=== PATIENT | female | born 1950 | race African-American/Black ===

== ENCOUNTER 2017-08-11 15:17 | Inpatient (IN) | payer BC, MEDICARE ==
[2017-08-11] MEDS: IV NORMAL SALINE 1000ML BAG 1,500 ML IV ×3 (15:46→19:45)
[2017-08-11] MEDS: ONDANSETRON PF 4 MG/2 ML VIAL. IV (15:52)
[2017-08-11] MEDS: fentaNYL PF VIAL 100 MCG/2 ML VIAL IV (15:52)
[2017-08-11 16:19] LABS: BILIRUBIN,URINE NEGATIVE (NEG); CLARITY,URINE TURBID; COLOR,URINE YELLOW; GLUCOSE,URINE 250 mg/dL (NEG); NITRITE,URINE NEGATIVE (NEG); PH,URINE 6.5; PROTEIN,URINE >=300 mg/dL (NEG-TRACE); UROBILINOGEN,URINE 0.2 mg/dL (0.2 mg/dL)
[2017-08-11 16:27] LABS: BACTERIA,URINE FEW /HPF (0-FEW); RBC,URINE OCC /HPF (0-2); SQUAMOUS EPITHELIAL CELL,UR FEW /LPF; WBC,URINE TNTC /HPF (0-4)
[2017-08-11 16:50] LABS: INFLUENZA A PATIENT NEGATIVE (NEGATIVE); INFLUENZA B PATIENT NEGATIVE (NEGATIVE); OBC FLU VALID
[2017-08-11] MEDS ORDERED: fentaNYL PF VIAL 100 MCG/2 ML VIAL IV (17:00)
[2017-08-11] MEDS ORDERED: ONDANSETRON PF 4 MG/2 ML VIAL. IV (17:00)
[2017-08-11] MEDS ORDERED: levOFLOXacin PER PHARMACY. MC (17:00)
[2017-08-11] MEDS ORDERED: ACETAMINOPHEN 325 MG TABLET. PO (17:00)
[2017-08-11 17:11] LABS: ANION GAP 13 (6-14); BLOOD UREA NITROGEN 35 mg/dL (7-20); BUN/CREATININE RATIO 16 (6-20); CALCIUM 9.1 mg/dL (8.5-10.1); CARBON DIOXIDE 22 mmol/L (21-32); CHLORIDE 99 mmol/L (98-107); CREATININE 2.2 mg/dL (0.6-1.0); GFR 26.9; GLUCOSE 313 mg/dL (70-99); POTASSIUM 4.4 mmol/L (3.5-5.1); SODIUM 134 mmol/L (136-145)
[2017-08-11 17:18] LABS: ALBUMIN 2.5 g/dL (3.4-5.0); ALBUMIN/GLOBULIN RATIO 0.5 (1.0-1.7); ALK PHOS 131 U/L (46-116); ALT (SGPT) 16 U/L (14-59); AST (SGOT) 15 U/L (15-37); LIPASE 56 U/L (73-393); TOTAL BILIRUBIN 0.3 mg/dL (0.2-1.0); TOTAL PROTEIN 7.3 g/dL (6.4-8.2)
[2017-08-11 17:21] LABS: LACTIC ACID 2.3 mmol/L (0.4-2.0)
[2017-08-11 18:15] LABS: ADD MAN DIFF? NO; BASO # 0.1 x10^3/uL (0.0-0.2); BASO % 1 % (0-3); EOS % 0 % (0-3); HEMOGLOBIN 11.3 g/dL (12.0-15.5); LYMPH # 1.3 x10^3/uL (1.0-4.8); LYMPH % 11 % (24-48); MEAN CORPUSCULAR HEMOGLOBIN 27 pg (25-35); MEAN CORPUSCULAR HGB CONC 33 g/dL (31-37); MEAN CORPUSCULAR VOLUME 81 fL (79-100); MONO # 0.6 x10^3/uL (0.0-1.1); MONO % 5 % (0-9); NEUT # 9.8 x10^3uL (1.8-7.7); NEUT % 83 % (31-73); PLATELET COUNT 474 x10^3/uL (140-400); RED BLOOD COUNT 4.19 x10^6/uL (3.50-5.40); RED CELL DISTRIBUTION WIDTH 14.5 % (11.5-14.5); WHITE BLOOD COUNT 11.8 x10^3/uL (4.0-11.0)
[2017-08-11 20:08] LABS: LACTIC ACID 2.8 mmol/L (0.4-2.0)
[2017-08-11] MEDS ORDERED: DICYCLOMINE HCL 10 MG CAPSULE PO (20:45)
[2017-08-11] MEDS ORDERED: NON FORMULARY ITEM (Budesonide/Formoterol Fumarate (Symbicort 160-4.5 Mcg Inhaler) 2 PUFF) IH (21:00)
[2017-08-11] MEDS ORDERED: NON FORMULARY ITEM (Ranitidine Hcl 1 CAP) PO (21:00)
[2017-08-11] MEDS ORDERED: NON FORMULARY ITEM (Ipratropium/Albuterol Sulfate (Combivent Respimat Inhal) 2 INH) IH (21:00)
[2017-08-11] MEDS: INSULIN ASPART 300 UNITS/3 ML INSULN.PEN SQ (21:00)
[2017-08-11 21:23] LABS: POC GLUCOSE 237 mg/dL (70-99)
[2017-08-11] MEDS ORDERED: HYDROcodone/APAP 5/325MG 1 TAB TABLET PO (21:30)
[2017-08-11] MEDS ORDERED: ONDANSETRON ODT 4 MG TAB.RAPDIS. PO (21:30)
[2017-08-11] MEDS: IV NORMAL SALINE 1000ML BAG 1,000 ML IV (22:16)
[2017-08-11] MEDS: LATANOPROST 0.005% OPHTH SOLUTION 2.5ML BOTTLE. OU (22:28)
[2017-08-11] MEDS: traMADol 50 MG TABLET PO (22:28)
[2017-08-11] MEDS: GABAPENTIN 300 MG CAPSULE. PO (22:28)
[2017-08-11] MEDS: INSULIN DETEMIR 300 UNITS/3 ML INSULN.PEN. SQ (22:37)
[2017-08-12 00:33] LABS: POC GLUCOSE 210 mg/dL (70-99)
[2017-08-12 05:59] LABS: ADD MAN DIFF? NO
[2017-08-12] MEDS: IV NORMAL SALINE 1000ML BAG 1,000 ML IV ×2 (06:02→12:57)
[2017-08-12 06:04] LABS: BASO # 0.1 x10^3/uL (0.0-0.2); BASO % 1 % (0-3); EOS # 0.2 x10^3/uL (0.0-0.7); EOS % 1 % (0-3); HEMOGLOBIN 9.8 g/dL (12.0-15.5); LYMPH # 2.1 x10^3/uL (1.0-4.8); LYMPH % 19 % (24-48); MEAN CORPUSCULAR HEMOGLOBIN 27 pg (25-35); MEAN CORPUSCULAR HGB CONC 34 g/dL (31-37); MEAN CORPUSCULAR VOLUME 81 fL (79-100); MONO # 0.8 x10^3/uL (0.0-1.1); MONO % 8 % (0-9); NEUT # 7.6 x10^3uL (1.8-7.7); NEUT % 71 % (31-73); PLATELET COUNT 386 x10^3/uL (140-400); RED BLOOD COUNT 3.58 x10^6/uL (3.50-5.40); RED CELL DISTRIBUTION WIDTH 14.8 % (11.5-14.5); WHITE BLOOD COUNT 10.7 x10^3/uL (4.0-11.0)
[2017-08-12 06:13] LABS: ANION GAP 10 (6-14); BLOOD UREA NITROGEN 31 mg/dL (7-20); CALCIUM 8.8 mg/dL (8.5-10.1); CARBON DIOXIDE 23 mmol/L (21-32); CHLORIDE 103 mmol/L (98-107); CREATININE 1.9 mg/dL (0.6-1.0); GFR 31.8; GLUCOSE 176 mg/dL (70-99); POTASSIUM 4.2 mmol/L (3.5-5.1); SODIUM 136 mmol/L (136-145)
[2017-08-12] MEDS: IPRATRPIUM/ALBUTEROL 0.5/2.5MG 3 ML NEBU. NEB ×4 (08:00→19:36)
[2017-08-12] MEDS: PANTOPRAZOLE 40 MG TABLET.DR. PO (08:14)
[2017-08-12 08:40] LABS: POC GLUCOSE 150 mg/dL (70-99)
[2017-08-12] MEDS: AZELASTINE NASAL SPRAY 30ML BOTTLE. NS ×2 (09:00→21:54)
[2017-08-12] MEDS: EZETIMIBE 10 MG TABLET. PO (10:05)
[2017-08-12] MEDS: LOSARTAN POTASSIUM 50 MG TABLET. PO (10:06)
[2017-08-12] MEDS: ASPIRIN CHEWABLE 81 MG TABLET. PO (10:06)
[2017-08-12] MEDS: CHOLECALCIFEROL (VITAMIN D3) 1,000 UNIT TABLET PO (10:07)
[2017-08-12] MEDS: CITALOPRAM 20 MG TABLET. PO (10:07)
[2017-08-12] MEDS: traMADol 50 MG TABLET PO ×2 (10:07→21:54)
[2017-08-12] MEDS: RIVAROXABAN 15 MG TABLET. PO (10:07)
[2017-08-12] MEDS: hydroCHLOROthiazide 25 MG TABLET PO (10:07)
[2017-08-12] MEDS: NITROGLYCERIN 0.2MG/HR PATCH. TD (10:08)
[2017-08-12] MEDS: FLUTICASONE 50MCG/NASAL SPRAY 16GM BOTTLE. NS (10:18)
[2017-08-12] MEDS: INSULIN ASPART 300 UNITS/3 ML INSULN.PEN SQ ×5 (11:30→21:00)
[2017-08-12] MEDS: BUDESONIDE 0.5 MG/2 ML NEBU. NEB ×2 (11:50→19:36)
[2017-08-12 12:02] LABS: POC GLUCOSE 257 mg/dL (70-99)
[2017-08-12 17:15] LABS: POC GLUCOSE 242 mg/dL (70-99)
[2017-08-12 21:33] LABS: POC GLUCOSE 204 mg/dL (70-99)
[2017-08-12] MEDS: LATANOPROST 0.005% OPHTH SOLUTION 2.5ML BOTTLE. OU (21:54)
[2017-08-12] MEDS: GABAPENTIN 300 MG CAPSULE. PO (21:54)
[2017-08-12] MEDS: INSULIN DETEMIR 300 UNITS/3 ML INSULN.PEN. SQ (22:00)
[2017-08-13 03:33] LABS: ADD MAN DIFF? NO
[2017-08-13 03:37] LABS: BASO # 0.1 x10^3/uL (0.0-0.2); BASO % 1 % (0-3); EOS # 0.2 x10^3/uL (0.0-0.7); EOS % 2 % (0-3); HEMATOCRIT 29.3 % (36.0-47.0); HEMOGLOBIN 9.9 g/dL (12.0-15.5); LYMPH # 1.8 x10^3/uL (1.0-4.8); LYMPH % 18 % (24-48); MEAN CORPUSCULAR HEMOGLOBIN 28 pg (25-35); MEAN CORPUSCULAR HGB CONC 34 g/dL (31-37); MEAN CORPUSCULAR VOLUME 83 fL (79-100); MONO # 0.9 x10^3/uL (0.0-1.1); MONO % 8 % (0-9); NEUT # 7.4 x10^3uL (1.8-7.7); NEUT % 72 % (31-73); PLATELET COUNT 372 x10^3/uL (140-400); RED BLOOD COUNT 3.55 x10^6/uL (3.50-5.40); RED CELL DISTRIBUTION WIDTH 15.1 % (11.5-14.5); WHITE BLOOD COUNT 10.3 x10^3/uL (4.0-11.0)
[2017-08-13 03:57] LABS: ALBUMIN 2.3 g/dL (3.4-5.0); ALBUMIN/GLOBULIN RATIO 0.5 (1.0-1.7); ALK PHOS 120 U/L (46-116); ALT (SGPT) 14 U/L (14-59); ANION GAP 10 (6-14); AST (SGOT) 15 U/L (15-37); BLOOD UREA NITROGEN 33 mg/dL (7-20); BUN/CREATININE RATIO 15 (6-20); CALCIUM 8.9 mg/dL (8.5-10.1); CARBON DIOXIDE 23 mmol/L (21-32); CHLORIDE 104 mmol/L (98-107); CREATININE 2.2 mg/dL (0.6-1.0); GFR 26.9; GLUCOSE 221 mg/dL (70-99); POTASSIUM 4.5 mmol/L (3.5-5.1); SODIUM 137 mmol/L (136-145); TOTAL BILIRUBIN 0.2 mg/dL (0.2-1.0); TOTAL PROTEIN 6.5 g/dL (6.4-8.2)
[2017-08-13 07:30] LABS: POC GLUCOSE 184 mg/dL (70-99)
[2017-08-13] MEDS: INSULIN ASPART 300 UNITS/3 ML INSULN.PEN SQ ×7 (07:30→20:31)
[2017-08-13] MEDS: IPRATRPIUM/ALBUTEROL 0.5/2.5MG 3 ML NEBU. NEB ×4 (07:32→20:11)
[2017-08-13] MEDS: BUDESONIDE 0.5 MG/2 ML NEBU. NEB ×2 (07:32→20:11)
[2017-08-13] MEDS: ASPIRIN CHEWABLE 81 MG TABLET. PO (08:33)
[2017-08-13] MEDS: PANTOPRAZOLE 40 MG TABLET.DR. PO (08:33)
[2017-08-13] MEDS: LOSARTAN POTASSIUM 50 MG TABLET. PO (08:33)
[2017-08-13] MEDS: CHOLECALCIFEROL (VITAMIN D3) 1,000 UNIT TABLET PO (08:34)
[2017-08-13] MEDS: traMADol 50 MG TABLET PO ×2 (08:34→20:29)
[2017-08-13] MEDS: NITROGLYCERIN 0.2MG/HR PATCH. TD (08:34)
[2017-08-13] MEDS: hydroCHLOROthiazide 25 MG TABLET PO (08:34)
[2017-08-13] MEDS: EZETIMIBE 10 MG TABLET. PO (08:34)
[2017-08-13] MEDS: FLUTICASONE 50MCG/NASAL SPRAY 16GM BOTTLE. NS (08:35)
[2017-08-13] MEDS: CITALOPRAM 20 MG TABLET. PO (08:38)
[2017-08-13] MEDS: AZELASTINE NASAL SPRAY 30ML BOTTLE. NS ×2 (08:38→20:30)
[2017-08-13 10:57] LABS: POC GLUCOSE 234 mg/dL (70-99)
[2017-08-13] MEDS: IV NORMAL SALINE 1000ML BAG 1,000 ML IV (13:53)
[2017-08-13 16:23] LABS: POC GLUCOSE 208 mg/dL (70-99)
[2017-08-13] MEDS: RIVAROXABAN 10 MG TABLET. PO (17:15)
[2017-08-13] MEDS: GABAPENTIN 300 MG CAPSULE. PO (20:29)
[2017-08-13] MEDS: LATANOPROST 0.005% OPHTH SOLUTION 2.5ML BOTTLE. OU (20:30)
[2017-08-13] MEDS: INSULIN DETEMIR 300 UNITS/3 ML INSULN.PEN. SQ (20:36)
[2017-08-13 20:42] LABS: POC GLUCOSE 123 mg/dL (70-99)
[2017-08-14] MEDS: IV NORMAL SALINE 1000ML BAG 1,000 ML IV ×2 (04:04→17:37)
[2017-08-14 06:19] LABS: HEMATOCRIT 27.6 % (36.0-47.0); HEMOGLOBIN 9.2 g/dL (12.0-15.5); MEAN CORPUSCULAR HEMOGLOBIN 27 pg (25-35); MEAN CORPUSCULAR HGB CONC 33 g/dL (31-37); MEAN CORPUSCULAR VOLUME 82 fL (79-100); PLATELET COUNT 343 x10^3/uL (140-400); RED BLOOD COUNT 3.37 x10^6/uL (3.50-5.40); RED CELL DISTRIBUTION WIDTH 15.4 % (11.5-14.5); WHITE BLOOD COUNT 11.1 x10^3/uL (4.0-11.0)
[2017-08-14] MEDS: PANTOPRAZOLE 40 MG TABLET.DR. PO (06:48)
[2017-08-14 06:49] LABS: ANION GAP 9 (6-14); BLOOD UREA NITROGEN 38 mg/dL (7-20); CALCIUM 8.4 mg/dL (8.5-10.1); CARBON DIOXIDE 23 mmol/L (21-32); CHLORIDE 104 mmol/L (98-107); CREATININE 2.6 mg/dL (0.6-1.0); GFR 22.1; GLUCOSE 192 mg/dL (70-99); SODIUM 136 mmol/L (136-145)
[2017-08-14] MEDS: INSULIN ASPART 300 UNITS/3 ML INSULN.PEN SQ ×7 (07:30→21:00)
[2017-08-14] MEDS: IPRATRPIUM/ALBUTEROL 0.5/2.5MG 3 ML NEBU. NEB ×4 (07:56→20:28)
[2017-08-14] MEDS: BUDESONIDE 0.5 MG/2 ML NEBU. NEB ×2 (07:56→20:27)
[2017-08-14] MEDS: ASPIRIN CHEWABLE 81 MG TABLET. PO (08:20)
[2017-08-14] MEDS: CHOLECALCIFEROL (VITAMIN D3) 1,000 UNIT TABLET PO (08:21)
[2017-08-14] MEDS: CITALOPRAM 20 MG TABLET. PO (08:21)
[2017-08-14] MEDS: EZETIMIBE 10 MG TABLET. PO (08:21)
[2017-08-14] MEDS: traMADol 50 MG TABLET PO ×2 (08:25→21:10)
[2017-08-14] MEDS: hydroCHLOROthiazide 25 MG TABLET PO (08:26)
[2017-08-14] MEDS: NITROGLYCERIN 0.2MG/HR PATCH. TD (08:28)
[2017-08-14] MEDS: AZELASTINE NASAL SPRAY 30ML BOTTLE. NS ×2 (08:29→21:11)
[2017-08-14] MEDS: FLUTICASONE 50MCG/NASAL SPRAY 16GM BOTTLE. NS (08:29)
[2017-08-14] MEDS: LOSARTAN POTASSIUM 50 MG TABLET. PO (09:00)
[2017-08-14 11:37] LABS: POC GLUCOSE 219 mg/dL (70-99)
[2017-08-14] MEDS: FLUCONAZOLE 100 MG TABLET. PO (12:34)
[2017-08-14] MEDS: ANTI-COAG MONITOR BY PHARMACY. MC (13:01)
[2017-08-14] MEDS ORDERED: DEXTROSE 50% 25 GM / 50ML DISP.SYRIN. IV (17:27)
[2017-08-14] MEDS: DEXTROSE 50% 25 GM / 50ML DISP.SYRIN. IV (17:39)
[2017-08-14 17:44] LABS: POC GLUCOSE 68 mg/dL (70-99)
[2017-08-14 20:47] LABS: POC GLUCOSE 119 mg/dL (70-99)
[2017-08-14] MEDS: GABAPENTIN 300 MG CAPSULE. PO (21:10)
[2017-08-14] MEDS: LATANOPROST 0.005% OPHTH SOLUTION 2.5ML BOTTLE. OU (21:10)
[2017-08-14] MEDS: LACTOBACILLUS RHAMNOSUS GG 1 CAPSULE. PO (21:10)
[2017-08-14] MEDS: INSULIN DETEMIR 300 UNITS/3 ML INSULN.PEN. SQ (21:17)
[2017-08-15] MEDS: IV NORMAL SALINE 1000ML BAG 1,000 ML IV ×3 (00:56→20:24)
[2017-08-15 07:17] LABS: HEMATOCRIT 27.6 % (36.0-47.0); HEMOGLOBIN 9.2 g/dL (12.0-15.5); MEAN CORPUSCULAR HEMOGLOBIN 28 pg (25-35); MEAN CORPUSCULAR HGB CONC 34 g/dL (31-37); MEAN CORPUSCULAR VOLUME 83 fL (79-100); PLATELET COUNT 331 x10^3/uL (140-400); RED BLOOD COUNT 3.33 x10^6/uL (3.50-5.40); RED CELL DISTRIBUTION WIDTH 15.6 % (11.5-14.5); WHITE BLOOD COUNT 9.2 x10^3/uL (4.0-11.0)
[2017-08-15 07:39] LABS: ANION GAP 8 (6-14); BLOOD UREA NITROGEN 36 mg/dL (7-20); CALCIUM 8.9 mg/dL (8.5-10.1); CARBON DIOXIDE 22 mmol/L (21-32); CHLORIDE 105 mmol/L (98-107); CREATININE 2.4 mg/dL (0.6-1.0); GFR 24.3; GLUCOSE 246 mg/dL (70-99); POTASSIUM 4.6 mmol/L (3.5-5.1); SODIUM 135 mmol/L (136-145)
[2017-08-15] MEDS: IPRATRPIUM/ALBUTEROL 0.5/2.5MG 3 ML NEBU. NEB ×4 (08:09→20:08)
[2017-08-15] MEDS: BUDESONIDE 0.5 MG/2 ML NEBU. NEB ×2 (08:09→20:08)
[2017-08-15 08:16] LABS: POC GLUCOSE 235 mg/dL (70-99)
[2017-08-15] MEDS: PANTOPRAZOLE 40 MG TABLET.DR. PO (09:46)
[2017-08-15] MEDS: LACTOBACILLUS RHAMNOSUS GG 1 CAPSULE. PO ×2 (09:46→20:22)
[2017-08-15] MEDS: EZETIMIBE 10 MG TABLET. PO (09:46)
[2017-08-15] MEDS: traMADol 50 MG TABLET PO ×2 (09:46→20:22)
[2017-08-15] MEDS: ASPIRIN CHEWABLE 81 MG TABLET. PO (09:47)
[2017-08-15] MEDS: CITALOPRAM 20 MG TABLET. PO (09:47)
[2017-08-15] MEDS: CHOLECALCIFEROL (VITAMIN D3) 1,000 UNIT TABLET PO (09:47)
[2017-08-15] MEDS: AZELASTINE NASAL SPRAY 30ML BOTTLE. NS ×2 (09:48→20:23)
[2017-08-15] MEDS: FLUTICASONE 50MCG/NASAL SPRAY 16GM BOTTLE. NS (09:48)
[2017-08-15] MEDS: NITROGLYCERIN 0.2MG/HR PATCH. TD (09:48)
[2017-08-15] MEDS: INSULIN ASPART 300 UNITS/3 ML INSULN.PEN SQ ×7 (09:53→20:23)
[2017-08-15] MEDS: FLUCONAZOLE 100 MG TABLET. PO (09:56)
[2017-08-15 11:41] LABS: POC GLUCOSE 259 mg/dL (70-99)
[2017-08-15] MEDS: HYDROcodone/APAP 5/325MG 1 TAB TABLET PO (11:46)
[2017-08-15] MEDS: PHENAZOPYRIDINE 200 MG TABLET. PO (11:46)
[2017-08-15] MEDS: hydroCHLOROthiazide 25 MG TABLET PO (11:48)
[2017-08-15] MEDS: LOSARTAN POTASSIUM 50 MG TABLET. PO (11:48)
[2017-08-15 13:26] LABS: RETIC COUNT 0.8 % (0.5-2.5)
[2017-08-15 13:32] LABS: % SAT IRON 9 % (15-34); IRON,SERUM 21 ug/dL (50-170)
[2017-08-15 13:47] LABS: FERRITIN 109 ng/mL (8-252)
[2017-08-15 17:12] LABS: POC GLUCOSE 70 mg/dL (70-99)
[2017-08-15] MEDS: DEXTROSE 50% 25 GM / 50ML DISP.SYRIN. IV (17:30)
[2017-08-15 18:48] LABS: POC GLUCOSE 91 mg/dL (70-99)
[2017-08-15] MEDS: GABAPENTIN 300 MG CAPSULE. PO (20:22)
[2017-08-15] MEDS: LATANOPROST 0.005% OPHTH SOLUTION 2.5ML BOTTLE. OU (20:24)
[2017-08-15] MEDS: INSULIN DETEMIR 300 UNITS/3 ML INSULN.PEN. SQ (20:31)
[2017-08-15 20:49] LABS: POC GLUCOSE 101 mg/dL (70-99)
[2017-08-16 02:15] LABS: TOTAL PROTEIN CREATININE RATIO 2714 mg/g creat (0-200); UR CREATININE RD 72.4 mg/dL (Not Estab.); UR PROTEIN RD 196.5 mg/dL (Not Estab.)
[2017-08-16] MEDS: IV NORMAL SALINE 1000ML BAG 1,000 ML IV (06:23)
[2017-08-16] MEDS: INSULIN ASPART 300 UNITS/3 ML INSULN.PEN SQ ×7 (07:30→21:00)
[2017-08-16] MEDS: BUDESONIDE 0.5 MG/2 ML NEBU. NEB ×2 (07:38→19:35)
[2017-08-16] MEDS: IPRATRPIUM/ALBUTEROL 0.5/2.5MG 3 ML NEBU. NEB ×4 (07:38→19:34)
[2017-08-16 07:59] LABS: POC GLUCOSE 172 mg/dL (70-99)
[2017-08-16 08:28] LABS: ANION GAP 10 (6-14); BLOOD UREA NITROGEN 32 mg/dL (7-20); CARBON DIOXIDE 20 mmol/L (21-32); CHLORIDE 106 mmol/L (98-107); CREATININE 2.2 mg/dL (0.6-1.0); GFR 26.9; GLUCOSE 179 mg/dL (70-99); POTASSIUM 4.5 mmol/L (3.5-5.1); SODIUM 136 mmol/L (136-145)
[2017-08-16] MEDS: EZETIMIBE 10 MG TABLET. PO (08:39)
[2017-08-16] MEDS: LOSARTAN POTASSIUM 50 MG TABLET. PO (08:39)
[2017-08-16] MEDS: traMADol 50 MG TABLET PO ×2 (08:40→22:26)
[2017-08-16] MEDS: CITALOPRAM 20 MG TABLET. PO (08:40)
[2017-08-16] MEDS: NITROGLYCERIN 0.2MG/HR PATCH. TD (08:40)
[2017-08-16] MEDS: PANTOPRAZOLE 40 MG TABLET.DR. PO (08:40)
[2017-08-16] MEDS: FLUCONAZOLE 100 MG TABLET. PO (08:40)
[2017-08-16] MEDS: CHOLECALCIFEROL (VITAMIN D3) 1,000 UNIT TABLET PO (08:40)
[2017-08-16] MEDS: ASPIRIN CHEWABLE 81 MG TABLET. PO (08:40)
[2017-08-16] MEDS: hydroCHLOROthiazide 25 MG TABLET PO (08:40)
[2017-08-16] MEDS: LACTOBACILLUS RHAMNOSUS GG 1 CAPSULE. PO ×2 (08:40→22:25)
[2017-08-16] MEDS: FLUTICASONE 50MCG/NASAL SPRAY 16GM BOTTLE. NS (08:41)
[2017-08-16] MEDS: AZELASTINE NASAL SPRAY 30ML BOTTLE. NS ×2 (08:41→22:28)
[2017-08-16] MEDS: ANTI-COAG MONITOR BY PHARMACY. MC (11:18)
[2017-08-16 11:38] LABS: POC GLUCOSE 256 mg/dL (70-99)
[2017-08-16] MEDS: PHENAZOPYRIDINE 200 MG TABLET. PO ×3 (12:09→22:26)
[2017-08-16] MEDS: IRON SUCROSE COMPLEX 200 MG in TOTAL VOLUME SYRINGE 0 ML IV (12:09)
[2017-08-16 16:28] LABS: POC GLUCOSE 73 mg/dL (70-99)
[2017-08-16] MEDS: RIVAROXABAN 10 MG TABLET. PO (17:12)
[2017-08-16 21:44] LABS: POC GLUCOSE 134 mg/dL (70-99)
[2017-08-16] MEDS: LATANOPROST 0.005% OPHTH SOLUTION 2.5ML BOTTLE. OU (22:26)
[2017-08-16] MEDS: GABAPENTIN 300 MG CAPSULE. PO (22:27)
[2017-08-16] MEDS: INSULIN DETEMIR 300 UNITS/3 ML INSULN.PEN. SQ (22:38)
[2017-08-17] MEDS: INSULIN ASPART 300 UNITS/3 ML INSULN.PEN SQ ×4 (07:30→12:26)
[2017-08-17 07:38] LABS: POC GLUCOSE 168 mg/dL (70-99)
[2017-08-17] MEDS: BUDESONIDE 0.5 MG/2 ML NEBU. NEB (07:49)
[2017-08-17] MEDS: IPRATRPIUM/ALBUTEROL 0.5/2.5MG 3 ML NEBU. NEB ×2 (07:49→12:00)
[2017-08-17] MEDS: CITALOPRAM 20 MG TABLET. PO (08:08)
[2017-08-17] MEDS: FLUTICASONE 50MCG/NASAL SPRAY 16GM BOTTLE. NS (08:08)
[2017-08-17] MEDS: AZELASTINE NASAL SPRAY 30ML BOTTLE. NS (08:08)
[2017-08-17] MEDS: EZETIMIBE 10 MG TABLET. PO (08:09)
[2017-08-17] MEDS: PHENAZOPYRIDINE 200 MG TABLET. PO ×2 (08:09→14:06)
[2017-08-17] MEDS: PANTOPRAZOLE 40 MG TABLET.DR. PO (08:09)
[2017-08-17] MEDS: hydroCHLOROthiazide 25 MG TABLET PO (08:09)
[2017-08-17] MEDS: FLUCONAZOLE 100 MG TABLET. PO (08:09)
[2017-08-17] MEDS: ASPIRIN CHEWABLE 81 MG TABLET. PO (08:09)
[2017-08-17] MEDS: traMADol 50 MG TABLET PO (08:10)
[2017-08-17] MEDS: LOSARTAN POTASSIUM 50 MG TABLET. PO (08:10)
[2017-08-17] MEDS: LACTOBACILLUS RHAMNOSUS GG 1 CAPSULE. PO (08:10)
[2017-08-17] MEDS: CHOLECALCIFEROL (VITAMIN D3) 1,000 UNIT TABLET PO (08:10)
[2017-08-17] MEDS: NITROGLYCERIN 0.2MG/HR PATCH. TD (08:11)
[2017-08-17 11:26] LABS: POC GLUCOSE 220 mg/dL (70-99)
== END 2017-08-17 15:30 | disposition home or self-care (01) | DRG 871 ==
LOC: ER 15:17 → 5 SOUTH 16:50
DX: A41.9 Sepsis, unspecified organism (principal); N17.0 Acute kidney failure with tubular necrosis; E87.2 Acidosis; E11.22 Type 2 diabetes mellitus with diabetic chronic kidney disease; E11.319 Type 2 diabetes mellitus with unspecified diabetic retinopathy without macular edema; B37.49 Other urogenital candidiasis; N10 Acute pyelonephritis; E11.65 Type 2 diabetes mellitus with hyperglycemia; N18.9 Chronic kidney disease, unspecified; E78.00 Pure hypercholesterolemia, unspecified; E78.5 Hyperlipidemia, unspecified; E86.0 Dehydration; G47.33 Obstructive sleep apnea (adult) (pediatric); I12.9 Hypertensive chronic kidney disease with stage 1 through stage 4 chronic kidney disease, or unspecified chronic kidney disease; I25.10 Atherosclerotic heart disease of native coronary artery without angina pectoris; J44.9 Chronic obstructive pulmonary disease, unspecified; K21.9 Gastro-esophageal reflux disease without esophagitis; K58.9 Irritable bowel syndrome, unspecified; N18.3 Chronic kidney disease, stage 3 (moderate); R65.20 Severe sepsis without septic shock; Z79.01 Long term (current) use of anticoagulants; Z79.4 Long term (current) use of insulin; Z80.9 Family history of malignant neoplasm, unspecified; Z82.49 Family history of ischemic heart disease and other diseases of the circulatory system; Z82.5 Family history of asthma and other chronic lower respiratory diseases; Z83.3 Family history of diabetes mellitus; Z86.718 Personal history of other venous thrombosis and embolism; Z87.440 Personal history of urinary (tract) infections; Z87.891 Personal history of nicotine dependence; Z90.49 Acquired absence of other specified parts of digestive tract; Z90.710 Acquired absence of both cervix and uterus; Z95.1 Presence of aortocoronary bypass graft; F32.9 Major depressive disorder, single episode, unspecified; G89.29 Other chronic pain; M19.90 Unspecified osteoarthritis, unspecified site; I25.2 Old myocardial infarction; Z88.6 Allergy status to analgesic agent; Z88.2 Allergy status to sulfonamides; D63.1 Anemia in chronic kidney disease
CPT/HCPCS: 36415; 71045; 76700; 76770; 80048; 80053; 81001; 82570; 82728; 82962; 83540; 83550; 83605; 83690; 84156; 85025; 85027; 85045; 87040; 87086; 87804; 87804-59; 93005; 94640; 94760; 96365; 96375; 97161-GP; 97166-GO; 99291; 99291-25; J1650; J1756; J1815; J1956; J2405; J3010; J7030; J7042; J7620; J7626

== ENCOUNTER 2017-08-21 14:00 | Observation (INO) | payer BC ==
[2017-08-21 14:39] LABS: ADD MAN DIFF? NO
[2017-08-21] MEDS: IV NORMAL SALINE 1000ML BAG 1,000 ML IV ×4 (14:39→17:10)
[2017-08-21] MEDS: ONDANSETRON PF 4 MG/2 ML VIAL. IV ×2 (14:39)
[2017-08-21 14:40] LABS: BASO # 0.1 x10^3/uL (0.0-0.2); BASO % 1 % (0-3); EOS # 0.1 x10^3/uL (0.0-0.7); EOS % 1 % (0-3); HEMATOCRIT 31.3 % (36.0-47.0); HEMOGLOBIN 10.6 g/dL (12.0-15.5); LYMPH # 1.1 x10^3/uL (1.0-4.8); LYMPH % 11 % (24-48); MEAN CORPUSCULAR HEMOGLOBIN 28 pg (25-35); MEAN CORPUSCULAR HGB CONC 34 g/dL (31-37); MEAN CORPUSCULAR VOLUME 82 fL (79-100); MONO # 0.4 x10^3/uL (0.0-1.1); MONO % 4 % (0-9); NEUT # 8.4 x10^3uL (1.8-7.7); NEUT % 84 % (31-73); PLATELET COUNT 406 x10^3/uL (140-400); RED BLOOD COUNT 3.84 x10^6/uL (3.50-5.40); RED CELL DISTRIBUTION WIDTH 15.3 % (11.5-14.5); WHITE BLOOD COUNT 10.1 x10^3/uL (4.0-11.0)
[2017-08-21] MEDS: 0.9 % SODIUM CHLORIDE 10 ML DISP.SYRIN. IV ×2 (14:40)
[2017-08-21] MEDS: MORPHINE SULFATE 4 MG/ML DISP.SYRIN. IV/SQ ×2 (14:40)
[2017-08-21 15:11] LABS: BILIRUBIN,URINE SMALL (NEG); CLARITY,URINE CLEAR; COLOR,URINE ORANGE; GLUCOSE,URINE NEGATIVE (NEG); NITRITE,URINE POSITIVE (NEG); PH,URINE 5.5; PROTEIN,URINE >=300 mg/dL (NEG-TRACE)
[2017-08-21 15:12] LABS: LACTIC ACID 0.9 mmol/L (0.4-2.0)
[2017-08-21 15:18] LABS: INFLUENZA A PATIENT NEGATIVE (NEGATIVE); INFLUENZA B PATIENT NEGATIVE (NEGATIVE); OBC FLU VALID
[2017-08-21 15:19] LABS: BACTERIA,URINE FEW /HPF (0-FEW); RBC,URINE TNTC /HPF (0-2); SQUAMOUS EPITHELIAL CELL,UR OCC /LPF
[2017-08-21 15:44] LABS: ANION GAP 15 (6-14); BLOOD UREA NITROGEN 15 mg/dL (7-20); CALCIUM 6.5 mg/dL (8.5-10.1); CARBON DIOXIDE 14 mmol/L (21-32); CHLORIDE 116 mmol/L (98-107); CREATININE 0.9 mg/dL (0.6-1.0); GFR 75.3; GLUCOSE 80 mg/dL (70-99); POTASSIUM 3.4 mmol/L (3.5-5.1); SODIUM 145 mmol/L (136-145)
[2017-08-21 15:51] LABS: ALBUMIN 1.8 g/dL (3.4-5.0); ALK PHOS 92 U/L (46-116); ALT (SGPT) 13 U/L (14-59); AST (SGOT) 18 U/L (15-37); DIRECT BILIRUBIN 0.1 mg/dL (0.0-0.2); LIPASE 147 U/L (73-393); TOTAL BILIRUBIN 0.4 mg/dL (0.2-1.0); TOTAL PROTEIN 4.4 g/dL (6.4-8.2)
[2017-08-21 15:56] LABS: TROPONINI < 0.017 ng/mL (0.000-0.055)
[2017-08-21 15:58] LABS: CKMB MASS 1.5 ng/mL (0.0-3.6); CREATINE KINASE 47 U/L (26-192)
[2017-08-21] MEDS ORDERED: IOHEXOL 300 MG/ML 100ML VIAL. IV ×2 (16:00)
[2017-08-21] MEDS ORDERED: CONTRAST GIVEN MC ×2 (16:00)
[2017-08-21] MEDS ORDERED: ONDANSETRON PF 4 MG/2 ML VIAL. IV ×2 (16:45)
[2017-08-21] MEDS ORDERED: MORPHINE SULFATE 4 MG/ML DISP.SYRIN. IV ×2 (16:45)
[2017-08-21] MEDS: LABETALOL 20 MG/4 ML DISP.SYRIN. IVP ×2 (17:10)
[2017-08-21] MEDS ORDERED: C.DIFF MED SCREEN BY RX. MC ×2 (18:30)
[2017-08-21] MEDS ORDERED: DICYCLOMINE HCL 10 MG CAPSULE PO ×2 (19:30)
[2017-08-21] MEDS ORDERED: ONDANSETRON ODT 4 MG TAB.RAPDIS. PO ×2 (19:45)
[2017-08-21] MEDS ORDERED: DEXTROSE 50% 25 GM / 50ML DISP.SYRIN. IV ×2 (19:45)
[2017-08-21] MEDS: traMADol 50 MG TABLET PO ×2 (20:54)
[2017-08-21] MEDS: RIVAROXABAN 10 MG TABLET. PO ×2 (20:55)
[2017-08-21] MEDS: GABAPENTIN 300 MG CAPSULE. PO ×2 (20:55)
[2017-08-21] MEDS: LACTOBACILLUS RHAMNOSUS GG 1 CAPSULE. PO ×2 (20:55)
[2017-08-21] MEDS: LATANOPROST 0.005% OPHTH SOLUTION 2.5ML BOTTLE. OU ×2 (20:59)
[2017-08-21] MEDS ORDERED: AZELASTINE NS ×2 (21:00)
[2017-08-21] MEDS ORDERED: NON FORMULARY ITEM (Budesonide/Formoterol Fumarate (Symbicort 160-4.5 Mcg Inhaler) 2 PUFF) IH ×2 (21:00)
[2017-08-21] MEDS ORDERED: FLUTICASONE NS ×2 (21:00)
[2017-08-21] MEDS: BUDESONIDE 0.5 MG/2 ML NEBU. NEB ×2 (21:22)
[2017-08-21] MEDS: ALBUTEROL SULFATE 2.5 MG/3 ML NEBU. NEB ×2 (21:22)
[2017-08-21 21:52] LABS: POC GLUCOSE 158 mg/dL (70-99)
[2017-08-22] MEDS: INSULIN DETEMIR 300 UNITS/3 ML INSULN.PEN. SQ ×4 (00:14→22:19)
[2017-08-22] MEDS: IV NORMAL SALINE 1000ML BAG 1,000 ML IV ×2 (04:04)
[2017-08-22] MEDS ORDERED: HYDROcodone/APAP 5/325MG 1 TAB TABLET PO ×2 (07:15)
[2017-08-22 07:47] LABS: POC GLUCOSE 78 mg/dL (70-99)
[2017-08-22] MEDS: INSULIN ASPART 300 UNITS/3 ML INSULN.PEN SQ ×6 (08:00→17:00)
[2017-08-22] MEDS ORDERED: traMADol 50 MG TABLET PO ×2 (08:15)
[2017-08-22] MEDS: ALBUTEROL SULFATE 2.5 MG/3 ML NEBU. NEB ×8 (08:48→20:20)
[2017-08-22] MEDS: BUDESONIDE 0.5 MG/2 ML NEBU. NEB ×4 (08:48→20:20)
[2017-08-22] MEDS: GABAPENTIN 300 MG CAPSULE. PO ×6 (10:21→20:21)
[2017-08-22] MEDS: ASPIRIN ENTERIC COATED 81 MG TABLET.DR. PO ×2 (10:21)
[2017-08-22] MEDS: PHENAZOPYRIDINE 200 MG TABLET. PO ×6 (10:21→20:21)
[2017-08-22] MEDS: EZETIMIBE 10 MG TABLET. PO ×2 (10:21)
[2017-08-22] MEDS: CHOLECALCIFEROL (VITAMIN D3) 1,000 UNIT TABLET PO ×2 (10:21)
[2017-08-22] MEDS: hydroCHLOROthiazide 25 MG TABLET PO ×2 (10:22)
[2017-08-22] MEDS: PANTOPRAZOLE 40 MG TABLET.DR. PO ×2 (10:22)
[2017-08-22] MEDS: LOSARTAN POTASSIUM 50 MG TABLET. PO ×2 (10:22)
[2017-08-22] MEDS: CITALOPRAM 20 MG TABLET. PO ×2 (10:23)
[2017-08-22] MEDS: HYDROcodone/APAP 5/325MG 1 TAB TABLET PO ×2 (10:23)
[2017-08-22] MEDS: LACTOBACILLUS RHAMNOSUS GG 1 CAPSULE. PO ×4 (10:23→20:21)
[2017-08-22] MEDS: FLUTICASONE 50MCG/NASAL SPRAY 16GM BOTTLE. NS ×2 (10:25)
[2017-08-22] MEDS: NITROGLYCERIN 0.2MG/HR PATCH. TD ×2 (10:32)
[2017-08-22] MEDS: ANTI-COAG MONITOR BY PHARMACY. MC ×2 (10:52)
[2017-08-22 12:01] LABS: POC GLUCOSE 97 mg/dL (70-99)
[2017-08-22] MEDS: RIVAROXABAN 10 MG TABLET. PO ×2 (17:01)
[2017-08-22] MEDS: LATANOPROST 0.005% OPHTH SOLUTION 2.5ML BOTTLE. OU ×2 (20:23)
[2017-08-22 22:29] LABS: POC GLUCOSE 178 mg/dL (70-99)
[2017-08-23 05:45] LABS: POC GLUCOSE 120 mg/dL (70-99)
[2017-08-23 07:37] LABS: POC GLUCOSE 96 mg/dL (70-99)
[2017-08-23] MEDS: ALBUTEROL SULFATE 2.5 MG/3 ML NEBU. NEB ×4 (07:40→11:58)
[2017-08-23] MEDS: BUDESONIDE 0.5 MG/2 ML NEBU. NEB ×2 (07:40)
[2017-08-23] MEDS: INSULIN ASPART 300 UNITS/3 ML INSULN.PEN SQ ×2 (08:00)
[2017-08-23] MEDS: PHENAZOPYRIDINE 200 MG TABLET. PO ×2 (08:44)
[2017-08-23] MEDS: CHOLECALCIFEROL (VITAMIN D3) 1,000 UNIT TABLET PO ×2 (08:44)
[2017-08-23] MEDS: LACTOBACILLUS RHAMNOSUS GG 1 CAPSULE. PO ×2 (08:44)
[2017-08-23] MEDS: hydroCHLOROthiazide 25 MG TABLET PO ×2 (08:44)
[2017-08-23] MEDS: PANTOPRAZOLE 40 MG TABLET.DR. PO ×2 (08:44)
[2017-08-23] MEDS: CITALOPRAM 20 MG TABLET. PO ×2 (08:44)
[2017-08-23] MEDS: EZETIMIBE 10 MG TABLET. PO ×2 (08:44)
[2017-08-23] MEDS: HYDROcodone/APAP 5/325MG 1 TAB TABLET PO ×2 (08:45)
[2017-08-23] MEDS: LOSARTAN POTASSIUM 50 MG TABLET. PO ×2 (08:45)
[2017-08-23] MEDS: GABAPENTIN 300 MG CAPSULE. PO ×2 (08:45)
[2017-08-23] MEDS: ASPIRIN ENTERIC COATED 81 MG TABLET.DR. PO ×2 (08:45)
[2017-08-23] MEDS: FLUTICASONE 50MCG/NASAL SPRAY 16GM BOTTLE. NS ×2 (08:47)
== END 2017-08-23 12:26 | disposition home or self-care (01) ==
LOC: ER 14:00 → 6 SOUTH 16:50
PROVIDERS: Family Medicine
DX: N30.91 Cystitis, unspecified with hematuria (principal); I12.9 Hypertensive chronic kidney disease with stage 1 through stage 4 chronic kidney disease, or unspecified chronic kidney disease; E11.22 Type 2 diabetes mellitus with diabetic chronic kidney disease; E11.319 Type 2 diabetes mellitus with unspecified diabetic retinopathy without macular edema; N18.9 Chronic kidney disease, unspecified; I25.10 Atherosclerotic heart disease of native coronary artery without angina pectoris; E78.5 Hyperlipidemia, unspecified; G47.33 Obstructive sleep apnea (adult) (pediatric); J44.9 Chronic obstructive pulmonary disease, unspecified; Z87.891 Personal history of nicotine dependence; F32.9 Major depressive disorder, single episode, unspecified; R53.81 Other malaise; Z95.1 Presence of aortocoronary bypass graft
CPT/HCPCS: 36415; 74176; 80048; 80076; 81001; 82553; 82962; 83605; 83690; 84484; 85025; 87040; 87086; 87804; 87804-59; 88112; 93005; 94640; 94760; 96361; 96365; 96366; 96372; 96375; 99285; G0378; G0379; J1815; J1956; J2270; J2405; J3490; J7030; J7613; J7626